=== PATIENT | male | born 1990 | race Caucasian/White ===

== ENCOUNTER 2022-07-11 21:20 | Emergency (ER) | payer OTHER ==
[~2022-07-11] VITALS: Ht 165.1 cm; Wt 91.0 kg
[2022-07-11] MEDS ORDERED: IBUPROFEN 600MG TABLET PO NR (23:13)
[2022-07-11] MEDS ORDERED: IBUP-2029 PO (23:23)
[2022-07-11] MEDS ORDERED: BO1 TP (23:23)
[2022-07-11] MEDS ORDERED: TETANUS, DIPHTHERIA, PERTUSSIS VAC/PF 0.5ML (>10YR OLD) IM ONE (23:30)
[2022-07-11] MEDS ORDERED: BACITRACIN ZINC OINT UDPKT TOP NR (23:30)
[2022-07-11 23:35] VITALS: BP 124/74
== END 2022-07-11 23:38 | disposition home or self-care (01) ==
LOC: ER 21:20
DX: S60.222A Contusion of left hand, initial encounter (principal); S60.419A Abrasion of unspecified finger, initial encounter; W22.01XA Walked into wall, initial encounter; Y93.89 Activity, other specified; Y92.148 Other place in prison as the place of occurrence of the external cause
CPT/HCPCS: 73110; 73130; 99284